=== PATIENT | male | born 1925 ===

== ENCOUNTER 2017-05-25 08:27 | Emergency (ER) | payer MEDICARE, OTHER ==
[2017-05-25 08:51] VITALS: RESP 16
--- NOTE | 2017-05-25 10:10 | C.PDOC ---
History Of Present Illness <Sera King - Last Filed: 05/25/17 12:43> <KodiCarlene - Last Filed: 05/25/17 14:09> 89 year old male with past medical history of CVA 2001, bypass, pacemaker, HTN, and BPH, and HLD who is wheel chair bound presents to the ED because his PMD Dr. Reece told him to come to the hospital. His at bedside showed me a prescription that was given to them per Dr. Reece for them to follow up with urologist Dr. Razia Smith. Patient states he urinates every 30 minutes. Per the patient is incontinent for many years since the patient has has his stroke. Patient wakes up many times throughout the night to urinate. He states his urine is sometimes dark yellow but denies blood in his urine. He denies dysuria, fever, or abdominal pain. Called Dr. Reece who stated he did not send the patient to the ED he told them to follow up with Dr. Razia Mims as an outpatient. Spoke with Dr. Smith who stated his office probably sent them to the hospital to be evaluated by him because the patient is wheel chair bound. PMD: Dr. 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 denies: Fever, Chills <Sera King - Last Filed: 05/25/17 12:43> <Carlene Mariee - Last Filed: 05/25/17 14:09> Chief Complaint (Nursing): Male Genitourinary Past Medical History - Medical History PMH: Arthritis, Asthma, Benign Prostatic Hyperplasia, CVA, HTN Surgical History: CABG (TRIPLE BYPASS), Pacemaker Family History: States: Unknown Family Hx - Social History Hx Alcohol Use: No Hx Substance Use: No - Immunization History Hx Tetanus Toxoid Vaccination: No Hx Influenza Vaccination: No <Sera King - Last Filed: 05/25/17 12:43> Vital Signs: Last Vital Signs Temp 97.9 F 05/25/17 08:44 Pulse 70 05/25/17 08:44 Resp 16 05/25/17 08:44 BP 154/79 H 05/25/17 08:44 Pulse Ox 95 05/25/17 12:46 Review Of Systems Constitutional: Positive for: Weakness. Negative for: Fever, Chills, Sweats Cardiovascular: Negative for: Chest Pain, Palpitations, Light Headedness Respiratory: Negative for: Shortness of Breath Genitourinary: Positive for: Frequency, Incontinence. Negative for: Dysuria, Hematuria Neurological: Positive for: Weakness <Sera King - Last Filed: 05/25/17 12:43> Physical Exam - Physical Exam Appears: Well, In Acute Distress Skin: Normal Color Head: Atraumatic Eye(s): bilateral: PERRL Tongue: Normal Appearing Lips: Normal Appearing Lymphatic: Normal Exam Cardiovascular: Rhythm Regular, Murmur (systolic murmur ) Respiratory: Normal Breath Sounds, No Accessory Muscle Use Gastrointestinal/Abdominal: Normal Exam, Bowel Sounds, Soft, No Tenderness, No Distention, No Guarding Extremity: Left: Limited ROM To Joint (CVA 2001) Neurological/Psych: Oriented x3 Disoriented To: Person, Place, Time <Sera King - Last Filed: 05/25/17 12:43> ED Course And Treatment O2 Sat by Pulse Oximetry: 95 <Sera King - Last Filed: 05/25/17 12:43> Progress <Sera King - Last Filed: 05/25/17 12:43> <Carlene Mariee - Last Filed: 05/25/17 14:09> - Re-Evaluation Re-evaluation Note: I spoke with Dr. Razia Smith who states his office possibly told the patient to come to the ED to be evaluated by him. He states he will evaluate the patient in the ED. 05/25/17 10:33 (Sera King) 05/25/17 10:15 PER RESIDENT, D/W DR Aurora REECE STATES PT WAS NOT ADVISED TO COME TO ER, WAS INSTRUCTED TO HAVE OUTPT FOR CURRENT COMPLAINTS. (KodiCarlene) Supervising Attending Note - Attestation: I have personally seen and examined this patient.: Yes I have fully participated in the care of the patient.: Yes I have reviewed all pertinent clinical information, including history, physical exam and plan: Yes <Carlene Mariee - Last Filed: 05/25/17 14:09> Medical Decision Making <Sera King - Last Filed: 05/25/17 12:43> <Carlene Mariee - Last Filed: 05/25/17 14:09> Medical Decision Making: Spoke with Dr. Razia Mims. He stated to order some preoperative labs: - cbc, PSA, UA, urine culture - CT of the abdomen/pelvis w/o contrast - Dr. Mims stated he spoke with the to call the office in a few weeks to schedule a follow up as the patient will need a cysto. (Sera King) Disposition <Sera King - Last Filed: 05/25/17 12:43> Counseled Patient/Family Regarding: Studies Performed, Diagnosis, Need For Followup - Disposition Disposition Time: 14:07 <Carlene Mariee - Last Filed: 05/25/17 14:09> - Disposition Referrals: Razia Mims MD [Staff Provider] - Disposition: HOME/ ROUTINE Condition: GOOD Prescriptions: levoFLOXacin [Levaquin] 500 mg PO DAILY #7 tab Instructions: Urinary Tract Infection in Men (ED) Forms: [facility] ([place]ish) - Clinical Impression Clinical Impression: UTI (urinary tract infection)
[2017-05-25 12:19] LABS: URINE BACTERIA OCC (<OCC); URINE BILIRUBIN NEGATIVE (NEGATIVE); URINE BLOOD 3+ (NEGATIVE); URINE CLARITY Hazy (Clear); URINE COLOR Yellow (YELLOW); URINE GLUCOSE (UA) NORMAL (Normal); URINE LEUKOCYTE ESTERASE 3+ Leu/uL (Negative); URINE NITRATE POSITIVE (NEGATIVE); URINE PROTEIN 1+ mg/dL (NEGATIVE); URINE UROBILINOGEN NORMAL mg/dL (0.2-1.0)
[2017-05-25] MEDS ORDERED: cefTRIAXone IV 1 gm in Dextros 50 ML IV STA (12:47)
--- NOTE | 2017-05-25 14:13 | CT ---
PROCEDURE: CT Abdomen and Pelvis without Oral or IV contrast. HISTORY: urinary incontinence COMPARISON: None available. TECHNIQUE: Contiguous axial images of the abdomen and pelvis. No oral or IV contrast administered. Coronal and Sagittal reformats generated and reviewed. Radiation dose: Total exam DLP = 544.82 mGy-cm. This CT exam was performed using one or more of the following dose reduction techniques: Automated exposure control, adjustment of the mA and/or kV according to patient size, and/or use of iterative reconstruction technique. FINDINGS: There is limited evaluation of the solid organs without the administration of IV contrast. Examination limited by patient motion as well as inability to elevate left arm. LOWER THORAX: No visible consolidation, pleural effusion, or pneumothorax. Partially imaged cardiomegaly. Partially imaged median sternotomy wires and AICD. Small hiatal hernia/distal esophageal wall thickening. LIVER: Unremarkable unenhanced appearance. GALLBLADDER AND BILE DUCTS: Unremarkable unenhanced appearance. PANCREAS: Unremarkable unenhanced appearance. SPLEEN: Unremarkable unenhanced appearance. ADRENALS: Unremarkable. KIDNEYS AND URETERS: Numerous bilateral calcifications including evidence of 14 mm left upper pole staghorn calculus. No hydronephrosis. BLADDER: The urinary bladder appears unremarkable. REPRODUCTIVE: The prostate gland measures approximately 2.9 x 4.4 cm. APPENDIX: The presumed appendix appears within normal limits caliber. No secondary signs of acute appendicitis. BOWEL: The stomach is nondistended. Lack of oral contrast limits evaluation for bowel pathology. The bowel loops appear within normal limits of caliber without evidence of intestinal obstruction. PERITONEUM: No significant free fluid. No definite free air. LYMPH NODES: No bulky lymphadenopathy identified. VASCULATURE: Dense atherosclerotic calcifications of the aorta and branches. Evidence of small saccular aneurysm along the right aspect of the distal infrarenal aorta measuring approximately 1.9 cm (AP) by 2.3 cm (transverse) by 1.2 cm (cc); series 3 image 77 and series 601, image 54. BONES: Degenerative changes. OTHER FINDINGS: Small bilateral fat containing inguinal hernias. Urinary bladder extends into the opening of the right inguinal hernia. IMPRESSION: Numerous bilateral calcifications including evidence of 14 mm left upper pole staghorn calculus. No hydronephrosis. 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 Enlarged prostate gland. Recommend correlation with PSA. Small bilateral fat containing inguinal hernias. Urinary bladder extends into the opening of the right inguinal hernia. Additional findings as above.
[2017-05-25] MEDS ORDERED: cefTRIAXone (Rocephin) 250 mg Inj IM STA (14:14)
[2017-05-25 14:17] LABS: HEMOGLOBIN 14.3 g/dL (12.0-18.0); MEAN CELL VOLUME 78.2 fL (80.0-94.0); MEAN CORPUSCULAR HEMOGLOBIN 25.4 pg (27.0-31.0); MEAN CORPUSCULAR HGB CONC 32.5 g/dL (33.0-37.0); MEAN PLATELET VOLUME 8.4 fL (7.2-11.7); RBC 5.64 Mil/uL (4.40-5.90); RED CELL DISTRIBUTION WIDTH 16.7 % (11.5-14.5); WHITE BLOOD COUNT 6.9 K/uL (4.8-10.8)
[2017-05-25 15:29] VITALS: BP 150/72; PULSE 76; TEMP 98.7
[2017-05-26 14:10] VITALS: O2SAT 95
[2017-05-26 21:03] LABS: TOTAL PSA 0.3 ng/mL (< or = 4.0)
== END 2017-05-25 15:29 | disposition home or self-care (01) ==
LOC: C.ER 08:27
DX: N39.0 Urinary tract infection, site not specified (principal)
CPT/HCPCS: 74176; 81001; 84153; 84154; 85027; 87086; 87181; 96372; 99284; J0696

== ENCOUNTER 2017-06-19 09:54 | Emergency (ER) | payer MEDICARE, OTHER ==
[2017-06-19 10:13] VITALS: RESP 18
--- NOTE | 2017-06-19 11:25 | C.PDOC ---
History Of Present Illness 89 yr old male with PMHx of HTN, bypass and hyperlipidemia, presents to the ER for evaluation of hematuria for the past 2 weeks, 4-5x a day. Patient reports seeing bright red blood but not clots. Patient states he was seen 1 month ago for by Dr. Rao for incontinence and diagnoses with UTI. Patient denies associated dysuria, flank pain, nausea, vomiting, abdominal pain, frequency or urgency. Time Seen by Provider: 06/19/17 10:44 Chief Complaint (Nursing): Male Genitourinary History Per: Patient History/Exam Limitations: no limitations Onset/Duration Of Symptoms: Days (2 weeks) Past Medical History Reviewed: Historical Data, Nursing Documentation, Vital Signs Vital Signs: Last Vital Signs Temp 98.7 F 06/19/17 20:48 Pulse 68 06/19/17 20:48 Resp 18 06/19/17 20:48 BP 154/85 H 06/19/17 20:48 Pulse Ox 98 06/19/17 20:48 - Medical History PMH: Arthritis, Asthma, Benign Prostatic Hyperplasia, CVA, HTN Surgical History: CABG (TRIPLE BYPASS), Pacemaker Family History: States: No Known Family Hx - Social History Hx Alcohol Use: No Hx Substance Use: No - Immunization History Hx Tetanus Toxoid Vaccination: No Hx Influenza Vaccination: No Hx Pneumococcal Vaccination: No Review Of Systems Except As Marked, All Systems Reviewed And Found Negative. Gastrointestinal: Negative for: Nausea, Vomiting, Abdominal Pain Genitourinary: Positive for: Hematuria. 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 HISTORY: Abdominal pain, hematuria. COMPARISON: 2017 CT abdomen and pelvis. TECHNIQUE: Axial images of the abdomen were obtained in the pre contrast, portal venous and delayed phases of enhancement. Coronal and sagittal reformats were generated. Contrast dose: 100 cc Visipaque 320. Radiation dose: Total exam DLP = 1511.69 mGy-cm. This CT exam was performed using one or more of the following dose reduction techniques: Automated exposure control, adjustment of the mA and/or kV according to patient size, and/or use of iterative reconstruction technique. FINDINGS: LOWER THORAX : Unremarkable. LIVER: Unremarkable. No gross lesion or ductal dilatation. GALLBLADDER AND BILE DUCTS: Unremarkable. PANCREAS: Unremarkable. No gross lesion or ductal dilatation. SPLEEN: Unremarkable. ADRENALS: Unremarkable. No mass. KIDNEYS AND URETERS: Multiple bilateral renal calculi larger more numerous left kidney compared to right. No evidence of hydronephrosis or hydroureter. No urinary bladder calculi identified. Soft tissue mass or clot within the left collecting system measuring 5 x 11 mm. This appears to be less likely to represent urothelial lesions then blood products/ thrombus/clot. Please refer to series 7, axial image 69 and coronal series 604/image 60. Confirmation in the sagittal projection series 605, image 91. VASCULATURE: Densely calcified abdominal aorta are non aneurysmal other than a small saccular aneurysm below the level of the renal arteries. BOWEL: Fecal impaction, constipation without mechanical obstruction. APPENDIX: Normal appendix. PERITONEUM: Unremarkable. No free fluid. No free air. LYMPH NODES: Unremarkable. No enlarged lymph nodes. BLADDER: Unremarkable. REPRODUCTIVE : Unremarkable. BONES: No acute fracture. OTHER FINDINGS: None. IMPRESSION : 1. Upper tract calculi bilaterally more numerous and larger left kidney/ collecting system. 2. Filling defect in the left renal pelvis more likely to be clot then a urothelial lesion. Medical Decision Making Medical Decision Making: PLAN: * CT - Abd & Pelvis with/wo IV Contrast * Labs * Urinalysis * Rocephin IVPB NOTE: * Spoke to Dr. Doris Rao regarding patient who is requesting CAT scan with/wo IV contrast and to have patient follow up in office tomorrow. * Discussed CAT scan results with family. * As per Dr. Doris Rao, he would like to start patent on antibiotics and have patient follow up in office for further evaluation. * Patient is clear for discharge. Disposition Discussed With Dr.: Razia Mims Doctor Will See Patient In The: Office Counseled Patient/Family Regarding: Studies Performed, Diagnosis, Need For Followup, Rx Given - Disposition Referrals: Razia Mims MD [Staff Provider] - [facility] [Outside] Disposition: HOME/ ROUTINE Disposition Time: 17:12 Condition: STABLE Additional Instructions: follow up with your doctor in 2 days call to make an appointment take medications as prescribed return to ER if symptoms worsens or progress Prescriptions: levoFLOXacin [Levaquin] 500 mg PO DAILY #7 tab Forms: [facility] ([place]), General Discharge Instructions - Clinical Impression Clinical Impression: Hematuria, UTI (urinary tract infection) - Scribe Statement The provider has reviewed the documentation as recorded by the Cleopatraibe Flor Jarrell Provider Attestation: All medical record entries made by the Scribe were at my direction and personally dictated by me. I have reviewed the chart and agree that the record accurately reflects my personal performance of the history, physical exam, medical decision making, and the department course for this patient. I have also personally directed, reviewed, and agree with the discharge instructions and disposition.
[2017-06-19 13:21] LABS: BASO # 0.1 K/uL (0.0-0.2); BASO % 1.2 % (0.0-2.0); EOS # 0.3 K/uL (0.0-0.7); EOS % 4.7 % (0.0-4.0); HEMOGLOBIN 14.4 g/dL (12.0-18.0); LYMPH # 1.5 K/uL (1.0-4.3); LYMPH % 20.7 % (20.0-40.0); MEAN CELL VOLUME 79.2 fL (80.0-94.0); MEAN CORPUSCULAR HGB CONC 32.8 g/dL (33.0-37.0); MEAN PLATELET VOLUME 8.2 fL (7.2-11.7); MONO # 0.5 K/uL (0.0-0.8); MONO % 7.6 % (0.0-10.0); NEUT # 4.7 K/uL (1.8-7.0); NEUT % 65.8 % (50.0-75.0); RBC 5.54 Mil/uL (4.40-5.90); RED CELL DISTRIBUTION WIDTH 16.8 % (11.5-14.5); WHITE BLOOD COUNT 7.2 K/uL (4.8-10.8)
[2017-06-19 13:28] LABS: PROTHROMBIN TIME 11.6 SECONDS (9.7-12.2)
[2017-06-19 13:44] LABS: URINE BILIRUBIN NEGATIVE (NEGATIVE); URINE BLOOD 3+ (NEGATIVE); URINE CLARITY Hazy (Clear); URINE COLOR Red (YELLOW); URINE GLUCOSE (UA) NORMAL (Normal); URINE LEUKOCYTE ESTERASE TRACE Leu/uL (Negative); URINE PROTEIN 2+ mg/dL (NEGATIVE); URINE UROBILINOGEN NORMAL mg/dL (0.2-1.0)
[2017-06-19 14:06] LABS: ALBUMIN 3.3 g/dL (3.5-5.0); CALCIUM 7.9 mg/dl (8.6-10.4); GFR AFRICAN-AMERICAN > 60; GFR NON-AFRICAN AMERICAN > 60
[2017-06-19 14:15] LABS: ALT/SGPT 15 U/L (21-72); AST/SGOT 42 U/L (17-59); BLOOD UREA NITROGEN 15 mg/dL (9-20)
[2017-06-19] MEDS ORDERED: cefTRIAXone IV 1 gm in Dextros 50 ML IVPB ONE (14:29)
[2017-06-19] MEDS ORDERED: Iodixanol 320 MG/ML 100 ML BOTTLE IV ONE (16:46)
--- NOTE | 2017-06-19 17:00 | CT ---
PROCEDURE: CT Abdomen and Pelvis with and without intravenous contrast HISTORY: Abdominal pain, hematuria COMPARISON: 05/25/2017 CT abdomen and pelvis TECHNIQUE: Axial images of the abdomen were obtained in the pre contrast, portal venous and delayed phases of enhancement. Coronal and sagittal reformats were generated. Contrast dose: 100 cc Visipaque 320. Radiation dose: Total exam DLP = 1511.69 mGy-cm. This CT exam was performed using one or more of the following dose reduction techniques: Automated exposure control, adjustment of the mA and/or kV according to patient size, and/or use of iterative reconstruction technique. FINDINGS: LOWER THORAX: Unremarkable. LIVER: Unremarkable. No gross lesion or ductal dilatation. GALLBLADDER AND BILE DUCTS: Unremarkable. PANCREAS: Unremarkable. No gross lesion or ductal dilatation. SPLEEN: Unremarkable. ADRENALS: Unremarkable. No mass. KIDNEYS AND URETERS: Multiple bilateral renal calculi larger more numerous left kidney compared to right. No evidence of hydronephrosis or hydroureter. No urinary bladder calculi identified. Soft tissue mass or clot within the left collecting system measuring 5 x 11 mm. This appears to be less likely to represent urothelial lesions then blood products/ thrombus/clot. Please refer to series 7, axial image 69 and coronal series 604/image 60. Confirmation in the sagittal projection series 605, image 91. VASCULATURE: Densely calcified abdominal aorta are non aneurysmal other than a small saccular aneurysm below the level of the renal arteries. BOWEL: Fecal impaction, constipation without mechanical obstruction. APPENDIX: Normal appendix. PERITONEUM: Unremarkable. No free fluid. No free air. LYMPH NODES: Unremarkable. No enlarged lymph nodes. BLADDER: Unremarkable. REPRODUCTIVE: Unremarkable. BONES: No acute fracture. OTHER FINDINGS: None. IMPRESSION: 1. Upper tract calculi bilaterally more numerous and larger left kidney/ collecting system. 2. Filling defect in the left renal pelvis more likely to be clot then a urothelial lesion.
[2017-06-19 20:49] VITALS: BP 154/85; PULSE 68; TEMP 98.7
[2017-06-22 13:21] VITALS: O2SAT 100
== END 2017-06-19 20:49 | disposition home or self-care (01) ==
LOC: C.ER 09:54
DX: N39.0 Urinary tract infection, site not specified (principal); R31.9 Hematuria, unspecified; E78.5 Hyperlipidemia, unspecified; I10 Essential (primary) hypertension
CPT/HCPCS: 74178; 80053; 81001; 85025; 85610; 85730; 87086; 96365; 99284; J0696; Q9967